=== PATIENT | male | born 1985 | race African-American/Black ===

== ENCOUNTER 2016-11-29 05:45 | Emergency (ER) | payer SELFPAY ==
[2016-11-29 05:53] VITALS: BP 148/97
[2016-11-29] MEDS ORDERED: Ketorolac INJ* 60 MG/2 ML VIAL IM ONE (07:28)
[2016-11-29] MEDS ORDERED: Clindamycin CAP* 150 MG PO ONE (07:33)
--- NOTE | 2016-11-29 17:07 | ED ---
Rambo Mcdonald Angela, scribed for Jasmeet Day MD on 11/29/16 at 0716 . Throat Pain/Nasal Congestion - HPI Summary HPI Summary: This pt is a 31 y/o male presenting to [facility] c/o left sided jaw pain and dental pain upon waking up this morning. Pt reports that his pain is severe, rated 8/ 10 in severity. Pt denies history of trauma to the area. He currently does not have a dentist. Pt denies trouble swallowing or throat tightening. Allergies: penicillin. He denies any PMHx. - History of Current Complaint Chief Complaint: EDGeneral Time Seen by Provider: 11/29/16 07:11 Hx Obtained From: Patient Onset/Duration: Lasting Hours, Still Present Severity: Severe - 8/10 pain Associated Signs And Symptoms: Negative: Dysphagia, FB Sensation, Drooling, Wheezing, Sinus Discomfort Cough: None - Allergies/Home Medications Allergies/Adverse Reactions: Allergies Allergy/AdvReac Type Severity Reaction Status Date / Time Penicillins [PCN] Allergy Unknown Verified 01/09/16 09:34 Reaction Details PMH/Surg Hx/FS Hx/Imm Hx Endocrine/Hematology History: Denies: Hx Diabetes Cardiovascular History: Denies: Hx Hypertension Respiratory History: Reports: Other Respiratory Problems/Disorders - h/o bronchitis Denies: Hx Asthma, Hx Pneumonia, Hx Seasonal Allergies GI History: Denies: Hx Gastroesophageal Reflux Disease Infectious Disease History: No Infectious Disease History: Denies: Traveled Outside the [place] in Last 30 Days - Family History Known Family History: Positive: Other - asthma - Social History Alcohol Use: None Substance Use Type: Reports: Marijuana Smoking Status (MU): Current Every Day Smoker Review of Systems Negative: Fever, Chills Positive: Dental Pain - left sided, Other - left jaw pain Negative: Chest Pain Negative: Shortness Of Breath Skin: Negative Negative: Headache, Weakness, Numbness All Other Systems Reviewed And Are Negative: Yes Physical Exam - Summary Physical Exam Summary: VITAL SIGNS: Reviewed. GENERAL: Patient is a well-developed and nourished male who is lying comfortable in the stretcher. Patient is not in any acute respiratory distress. HEAD AND FACE: No signs of trauma. No ecchymosis, hematomas or skull depressions. No sinus tenderness. EYES: PERRLA, EOMI x 2, No injected conjunctiva, no nystagmus. EARS: Hearing grossly intact. Ear canals and tympanic membranes are within normal limits. MOUTH: Oropharynx within normal limits. Pt has dental cavities in upper jaw. There are no signs of gingivitis or abscess. No trismus. No swelling of the lip or throat. NECK: Supple, trachea is midline, no adenopathy, no JVD, no carotid bruit, no c- spine tenderness, neck with full ROM. CHEST: Symmetric, no tenderness at palpation LUNGS: Clear to auscultation bilaterally. No wheezing or crackles. CVS: Regular rate and rhythm, S1 and S2 present, no murmurs or gallops appreciated. ABDOMEN: Soft, non-tender. No signs of distention. No rebound no guarding, and no masses palpated. Bowel sounds are normal. EXTREMITIES: FROM in all major joints, no edema, no cyanosis or clubbing. NEURO: Alert and oriented x 3. No acute neurological deficits. Speech is normal and follows commands. SKIN: Dry and warm Triage Information Reviewed: Yes Vital Signs On Initial Exam: Initial Vitals Temp Pulse Resp BP Pulse Ox 99.2 F 86 18 148/97 98 11/29/16 05:48 11/29/16 05:48 11/29/16 05:48 11/29/16 05:48 11/29/16 05:48 Vital Signs Reviewed: Yes - Rajwinder Coma Scale Coma Scale Total: 15 Diagnostics - Vital Signs Vital Signs Temp Pulse Resp BP Pulse Ox 11/29/16 05:48 99.2 F 86 18 148/97 98 - Laboratory Lab Statement: Any lab studies that have been ordered have been reviewed, and results considered in the medical decision making process. EENT Course/Dx - Course Assessment/Plan: This pt is a 31 y/o male presenting to [facility] c/o left sided jaw pain and dental pain upon waking up this morning. Pt reports that his pain is severe, rated 8/10 in severity. Pt denies history of trauma to the area. He currently does not have a dentist. Pt denies trouble swallowing or throat tightening. Allergies: penicillin. He denies any PMHx. In the physical exam, pt has dental cavities in the tooth# 15 and 16, as well as multiple teeth missing in # 17, 18, 19. The pt did not have trismus, swelling in tongue or gums , and no sign of abscess. Palpation at TMJ is not tender. Therefore, I believe his symptoms are secondary to dental cavities. Since the pt is allergic to penicillin, he will be given clindamycin and Toradol. Pt will be discharged and is asked to follow up with his dentist. Pt was given a prescription for clindamycin, norco and ibuprofen. He understands and agrees. Pt is hemodynamically stable, alert and oriented x3. - Differential Diagnoses Differential Diagnoses: Dental Abscess, Dental Caries - Diagnoses Provider Diagnoses: dental pain Discharge - Discharge Plan Condition: Stable Disposition: HOME Prescriptions: Clindamycin Cap(NF) [Clindamycin Cap 300 mg Cap(NF)] 300 mg PO Q6H #40 cap HYDROcodone/ACETAMIN 5-325 MG* [[place] 5-325 TAB*] 1 tab PO Q6H PRN #10 tab MDD 4 PRN Reason: Pain Ibuprofen TAB* [Motrin TAB* 800 MG] 800 mg PO Q6H PRN #20 tab PRN Reason: Pain Patient Education Materials: Toothache (ED) Referrals: Devyn Romero ASSISTANT ELEMENTARY TEACHER [Primary Care Provider] - Additional Instructions: Please follow up with your primary care provider. The documentation as recorded by the Rambo reyna Angela accurately reflects the service I personally performed and the decisions made by me, Jasmeet Day MD.
== END 2016-11-29 08:20 | disposition home or self-care (01) ==
LOC: ED 05:45
DX: K08.89 Other specified disorders of teeth and supporting structures (principal); F17.210 Nicotine dependence, cigarettes, uncomplicated
CPT/HCPCS: 96372; 99282; A9270-GY; J1885

== ENCOUNTER 2016-11-30 20:14 | Emergency (ER) | payer SELFPAY ==
[2016-11-30 20:21] VITALS: BP 161/92
[2016-11-30] MEDS ORDERED: Lidocaine 1%* 5 ML VIAL INJ ONE (21:27)
--- NOTE | 2016-11-30 21:48 | ED ---
Throat Pain/Nasal Congestion - HPI Summary HPI Summary: 31M presents with dental abscess for two days. He was seen yesterday and states that he just had pain in the area. He states over night he developed swelling there that goes in to left cheek. He denies any swelling around eyes or pain with eye movement. He denies any fevers, trismus. He admits to headache. He denies any chest pain or SOB. He has dental caries in the area. Pain is being managed well with pain medication given yesterday. - History of Current Complaint Chief Complaint: EDGeneral Time Seen by Provider: 11/30/16 20:29 - Allergies/Home Medications Allergies/Adverse Reactions: Allergies Allergy/AdvReac Type Severity Reaction Status Date / Time Penicillins [PCN] Allergy Unknown Verified 01/09/16 09:34 Reaction Details PMH/Surg Hx/FS Hx/Imm Hx Endocrine/Hematology History: Denies: Hx Diabetes Cardiovascular History: Denies: Hx Hypertension Respiratory History: Reports: Other Respiratory Problems/Disorders - h/o bronchitis Denies: Hx Asthma, Hx Pneumonia, Hx Seasonal Allergies GI History: Denies: Hx Gastroesophageal Reflux Disease Infectious Disease History: No Infectious Disease History: Denies: Traveled Outside the [place] in Last 30 Days - Family History Known Family History: Positive: Other - asthma - Social History Alcohol Use: None Substance Use Type: Reports: None Smoking Status (MU): Current Every Day Smoker Review of Systems Negative: Fever Positive: Dental Pain, Other - dental abscess Negative: Chest Pain Negative: Shortness Of Breath All Other Systems Reviewed And Are Negative: Yes Physical Exam Triage Information Reviewed: Yes Vital Signs On Initial Exam: Initial Vitals Temp Pulse Resp BP Pulse Ox 98.9 F 78 16 161/92 98 11/30/16 20:16 11/30/16 20:16 11/30/16 20:16 11/30/16 20:16 11/30/16 20:16 Vital Signs Reviewed: Yes Appearance: Positive: Well-Appearing Skin: Positive: Warm, Dry Head/Face: Positive: Normal Head/Face Inspection Eyes: Positive: Normal, EOMI, OSWALDO, Conjunctiva Clear ENT: Positive: Normal ENT inspection, Pharynx normal, TMs normal, Other - no edema under eyes Dental: Positive: Gross Decay/Caries @ - 12, Abscess @ - 12. Negative: Dental Fracture @ Neck: Positive: Supple, Nontender, No Lymphadenopathy Respiratory/Lung Sounds: Positive: Clear to Auscultation, Breath Sounds Present Cardiovascular: Positive: Normal, RRR Procedures - Incision and Drainage Site: tooth 12 Anesthesia: Topical, Local Instrument(s): Scalpel Diagnostics - Vital Signs Vital Signs Temp Pulse Resp BP Pulse Ox 11/30/16 20:16 98.9 F 78 16 161/92 98 - Laboratory Lab Statement: Any lab studies that have been ordered have been reviewed, and results considered in the medical decision making process. EENT Course/Dx - Course Course Of Treatment: 31M presents with dental abscess for two days. He was seen yesterday and states that he just had pain in the area. He states over night he developed swelling there that goes in to left cheek. He denies any swelling around eyes or pain with eye movement. He denies any fevers, trismus. He admits to headache. He denies any chest pain or SOB. He has dental caries in the area. Pain is being managed well with pain medication given yesterday. on exam has abscess tooth 12. no edema around eye. lungs CTA. attempted to I&D area and did not get any pus from abscess. will have continue clindamycin which has only been on for a day and gargle salt water in hopes that will drain. gave referral for oral surgery as needs dentist. patient understands and agrees with plan. - Differential Diagnoses Differential Diagnoses: Dental Abscess, Dental Caries, Fractured Tooth, Periorbital/Orbital Cellulitis - Diagnoses Provider Diagnoses: Dental abscess Discharge - Discharge Plan Condition: Good Disposition: HOME Patient Education Materials: Dental Abscess (ED) Referrals: Devyn Romero NP [Primary Care Provider] - Brandon Lombardi MD [Doctor of Dental Medicine] - Additional Instructions: Continue antibiotic as prescribed Follow up with dentist as soon as possible Do warm salt water rinses Place heat on area Return to ED if develop any pain with eye movement, fever, or any new or worsening symptoms Images - Images Dental: 1 - abscess
== END 2016-11-30 21:54 | disposition home or self-care (01) ==
LOC: ED 20:14
DX: K04.7 Periapical abscess without sinus (principal); F17.210 Nicotine dependence, cigarettes, uncomplicated
CPT/HCPCS: 96374; 99281

== ENCOUNTER 2017-02-16 03:52 | Emergency (ER) | payer BC ==
[2017-02-16] MEDS ORDERED: Metoclopramide IV* 5 MG/ML 2 ML VIAL IV ONE (04:05)
[2017-02-16] MEDS ORDERED: Morphine INJ* 4 MG/ML 1 ML CARPUJECT IV ONE (04:05)
[2017-02-16] MEDS ORDERED: Pantoprazole IV* 40 MG IV ONE (04:05)
[2017-02-16] MEDS ORDERED: NS 0.9% 1000 ML* 1,000 ML IV ONE (04:08)
[2017-02-16 04:57] LABS: ABS Basophils 0 10^3/ul (0-0.2); ABS Eosinophils 0.1 10^3/ul (0-0.6); ABS Lymphocytes 0.5 10^3/ul (1.0-4.8); ABS Monocytes 0.5 10^3/ul (0-0.8); ABS Neutrophils 6.9 10^3/ul (1.5-7.7); ABS Nucleated RBC 0 10^3/ul; Eosinophil % 0.7 % (0-6); Hematocrit 43 % (42-52); Hemoglobin 14.7 g/dl (14.0-18.0); Lymphocyte % 6.3 % (25-47); Mean Corpuscular HGB Conc 34 g/dl (31-36); Mean Corpuscular Hemoglobin 27 pg (27-31); Mean Corpuscular Volume 80 fL (80-94); Mean Platelet Volume 9 um3 (7.4-10.4); Nucleated Red Blood Cells % 0; Platelet Count 150 10^3/ul (150-450); Red Blood Count 5.38 10^6/ul (4.0-5.4); Red Cell Distribution Width 13 % (10.5-15)
[2017-02-16 05:12] LABS: EGFR Non-African American 101.7 (>60)
[2017-02-16] MEDS ORDERED: Iohexol 300* (CONTRAST) 10 ML SDV IV ONE (05:23)
--- NOTE | 2017-02-16 08:24 | RAD ---
INDICATION: Abdominal pain. COMPARISON: Comparison is made with a prior CT of the abdomen and pelvis from November 24, 2010. TECHNIQUE: A CT scan of the abdomen and pelvis was performed with intravenous and oral contrast following intravenous injection of 88 ml of Omnipaque 300 nonionic contrast. Contiguous axial sections were obtained from the lung bases through the symphysis pubis. Images were reconstructed in the coronal and sagittal planes. FINDINGS: The lung bases are clear. No pleural effusion is present. The liver and spleen are within normal limits in size without significant focal abnormality. No calcified gallstones are seen. The pancreas appears to be within normal limits in size. The kidneys and adrenal glands are normal in size. No hydronephrosis is seen. There is an 8 x 7 mm calculus in the midportion of the left kidney which is nonobstructing. The aorta is normal in caliber and demonstrates homogeneous contrast opacification. No significant enlarged retroperitoneal lymph nodes are seen. The stomach, small and large bowel appear nondistended. The appendix is not well visualized. There is suggestion of minimal thickening of the wall of the descending colon which likely represents normal variation less likely colitis. There is mild sigmoid diverticulosis without evidence for diverticulitis. No free intraperitoneal air or fluid is seen. No significant focal osseous abnormality is seen. IMPRESSION: 1. SUGGESTION OF MINIMAL THICKENING OF THE WALL OF THE ASCENDING COLON LIKELY REPRESENTING NORMAL VARIATION LESS LIKELY COLITIS. 2. NONOBSTRUCTING LEFT RENAL CALCULUS.
[2017-02-16 08:59] LABS: Urine Appearance Clear; Urine Blood Negative (Negative); Urine Color Yellow; Urine Ketones Trace (Negative); Urine Protein Negative (Negative); Urine Specific Gravity 1.051 (1.010-1.030); Urine Urobilinogen Negative (Negative)
--- NOTE | 2017-02-16 09:36 | ED ---
Mateus Mcdonald Natalie, scribed for Pepe Fitzpatrick MD on 02/16/17 at 0844 . Progress - Progress Note Progress Note: pt seen to have kidney stone nonobstructing, pain improved currently. No evidence of infection or kidney compromise, instructed to fu with urologist within 1 week. Pt agrees to and understnads dc instructions. - EKG/XRAY/CT CT: CT A/P: Nonobstructing L renal calculus. ED physician has reviewed this rep Course/Dx - Diagnoses Provider Diagnoses: Abdominal pain The documentation as recorded by the Mateus reyna Natalie accurately reflects the service I personally performed and the decisions made by Amari sheridan Dong, MD.
[2017-02-16 09:57] VITALS: BP 110/72
== END 2017-02-16 09:54 | disposition home or self-care (01) ==
LOC: ED 03:52
DX: R10.9 Unspecified abdominal pain (principal); N20.0 Calculus of kidney
CPT/HCPCS: 36415; 74177; 80053; 81003; 82150; 83690; 83735; 85025; 85730; 86140; 96374; 96375; 99283; J2270; J2765; Q9967

== ENCOUNTER 2017-03-11 11:41 | Day surgery (SDC) | payer BC ==
--- NOTE | 2017-02-28 20:32 | HP ---
ADMITTING HISTORY AND PHYSICAL: DATE OF ADMISSION: 03/11/17 ADMITTING DIAGNOSIS: Left renal calculus. PLANNED PROCEDURE: Shockwave lithotripsy of the left renal calculus. HISTORY OF PRESENT ILLNESS: Caleb Bauer is a 31-year-old gentleman who had been evaluated in the emergency room for left-sided pain. He had been noted to have a calculus in the left kidney and was subsequently seen in my office. He was noted to have a 1 cm calculus in the mid pole of the left kidney and would like to have treatment of the same. PAST MEDICAL HISTORY: Unremarkable. PAST SURGICAL HISTORY: Negative. MEDICATIONS ON ADMISSION: None. ALLERGIES: PENICILLIN (hives). FAMILY HISTORY: Grandmother and cousin both have a history of kidney stones. SOCIAL HISTORY: Smoking history: He is a former smoker with a 3 to 4 pack year smoking history. REVIEW OF SYSTEMS: He denies any chest pain or shortness of breath. There is no history of diabetes mellitus or any other major systemic illness. PHYSICAL EXAMINATION GENERAL: Reveals a pleasant healthy-appearing young gentleman. VITAL SIGNS: Blood pressure is 112/80, pulse 90 per minute and regular, oxygen saturation 98% on room air. LUNGS: Clear bilaterally. CARDIOVASCULAR: Regular rate and rhythm. S1, S2. ABDOMEN: Soft with mild left flank tenderness. IMPRESSION: A 31-year-old gentleman with about 1 cm calculus in the left kidney. I have discussed the procedure of lithotripsy along with possible risks of bleeding, infection, incomplete fragmentation, possible injury to the kidney and he appears to understand and wishes to proceed as planned. PLAN: Shockwave lithotripsy, left renal calculus. [id number]/[facility] #: [id number] MTDD
[~2017-03-11 11:41] MED LIST: Buffered Lidocaine 0.9% SYRIN* 5 ML/SYR SYRINGE INTRADERM ONE; Dexamethasone IV* 4 MG/ML 1 ML (4 MG) IV SLOW PU ONE; Famotidine IV* 10 MG/ML 2 ML (20 mg) IV ONE
[2017-03-11] MEDS ORDERED: Buffered Lidocaine 0.9% SYRIN* 5 ML/SYR SYRINGE ONE (11:52)
[2017-03-11] MEDS ORDERED: cefTRIAXone(*) 2 GM ADDV.VIAL IVPB ONE (11:52)
[2017-03-11] MEDS ORDERED: Dexamethasone IV* 4 MG/ML 1 ML (4 MG) ONE (11:52)
[2017-03-11] MEDS ORDERED: Famotidine IV* 10 MG/ML 2 ML (20 mg) ONE (11:52)
[2017-03-11] MEDS ORDERED: Levofloxacin 500 MG IVPREMIX(* 500 MG/100 ML BAG IVPB ONE (12:23)
[2017-03-11] MEDS ORDERED: Midazolam* 1 MG/ML 2 ML VIAL (2 MG) ONE (12:32)
[2017-03-11] MEDS ORDERED: fentaNYL* 50 MCG/ML 2 ML VIAL (100 MCG VIAL) ONE (12:32)
[2017-03-11] MEDS ORDERED: Propofol* 10 MG/ML 20 ML BTL IV PUSH ONE (12:32)
[2017-03-11] MEDS ORDERED: Ondansetron INJ* 2 MG/ML VIAL ONE (12:32)
--- NOTE | 2017-03-11 13:05 | RAD ---
Indication: Lithotripsy. Single view of the abdomen demonstrates bowel gas pattern to be unremarkable. Calcifications are present overlying the midportion of the left kidney. This is unchanged from February 26, 2017. IMPRESSION: Calcification in the midportion of the left kidney. This is unchanged from February 26, 2017.
[2017-03-11] MEDS ORDERED: Naloxone* 0.4 MG/ML 1 ML VIAL IV PRN (14:49)
[2017-03-11] MEDS ORDERED: fentaNYL* 50 MCG/ML 2 ML VIAL (100 MCG VIAL) IV PRN (14:49)
[2017-03-11] MEDS ORDERED: DiMENhydriNATE IV* 50 MG/ML VIAL IV PUSH PRN (14:49)
[2017-03-11 15:59] VITALS: BP 113/71
--- NOTE | 2017-03-11 16:43 | RAD ---
INDICATION: Status post shock wave lithotripsy. COMPARISON: Comparison is made with a prior CT of the abdomen and pelvis from February 16, 2017 and a prior KUB study from March 11, 2017 from 4 hours earlier. TECHNIQUE: Frontal supine films of the abdomen were obtained. FINDINGS: The small bowel and colon appear nondistended. There are calculi which project over the midportion of the left kidney measuring up to 6 mm in size. IMPRESSION: LEFT RENAL CALCULI.
--- NOTE | 2017-03-12 06:48 | OP ---
DATE OF OPERATION: 03/11/17 - [facility] DATE OF : 83 SURGEON: Jerel Hoff MD ANESTHESIOLOGIST: Dr. Whitman. ANESTHESIA: General. PRE-OP DIAGNOSIS: Left renal calculus. POST-OP DIAGNOSIS: Left renal calculus. OPERATIVE PROCEDURE: Shockwave lithotripsy of left renal calculus. INDICATIONS: Caleb Bauer is a 31-year-old gentleman who was evaluated and noted to have a 7 to 8 mm calculus in the left kidney. He desires treatment of the same and after thorough discussion of the procedure and possible risks including bleeding, infection, incomplete fragmentation and obstruction with fragments, he opted for and is now being brought in for shockwave lithotripsy. COMPLICATIONS: None. POSTOPERATIVE CONDITION: Stable. DESCRIPTION OF PROCEDURE: After induction of general anesthesia, the patient was placed on the lithotripsy table in supine position. There calculus in the mid to lower pole area of the left kidney was localized using fluoroscopy. Shock-wave lithotripsy was commenced at a rate of 90 shocks per minute. After the initial 300 shocks, there was a pause in lithotripsy in an effort to minimize any potential trauma to the kidney. Lithotripsy was then resumed and a total of 2400 shocks were administered. The patient tolerated the procedure satisfactorily and was transferred back to the recovery area in stable condition. [id number]/[facility] #: [id number] MTDD
== END 2017-03-11 16:06 | disposition home or self-care (01) ==
LOC: OR 11:41
PROVIDERS: ATTEND Urology
DX: N20.0 Calculus of kidney (principal); Z87.891 Personal history of nicotine dependence
CPT/HCPCS: 74018; J0696; J1100; J1956; J2250; J2405; J2704; J3010

== ENCOUNTER 2017-06-11 11:26 | Emergency (ER) | payer BC ==
[2017-06-11 11:35] VITALS: BP 120/70
--- NOTE | 2017-06-11 12:42 | ED ---
Amol Mcdonald Stephanie, scribed for Ja Daigle MD on 06/11/17 at 1146 . Throat Pain/Nasal Congestion - HPI Summary HPI Summary: The pt is a 31 y/o M presenting to the ED with c/o sore throat that began on . Symptoms include cough and nasal congestion. - History of Current Complaint Chief Complaint: EDThroatPain Time Seen by Provider: 06/11/17 11:40 Hx Obtained From: Patient Onset/Duration: Gradual Onset, Lasting Days - 2, Still Present Severity: Mild Cough: Nonproductive Related History: Smoking - Allergies/Home Medications Allergies/Adverse Reactions: Allergies Allergy/AdvReac Type Severity Reaction Status Date / Time Penicillins Allergy Hives Verified 06/11/17 11:33 PMH/Surg Hx/FS Hx/Imm Hx Endocrine/Hematology History: Denies: Hx Diabetes Cardiovascular History: Denies: Hx Hypertension, Other Cardiovascular Problems/Disorders Respiratory History: Denies: Hx Asthma, Hx Pneumonia, Hx Seasonal Allergies, Other Respiratory Problems/Disorders GI History: Denies: Hx Gastroesophageal Reflux Disease, Other GI Disorders History: Reports: Hx Kidney Stones - Left renal calculus, ESWL 03/11/17, Other Problems/Disorders - chlamydia, 3 years ago, treated Denies: Hx Kidney Infection Musculoskeletal History: Denies: Other Musculoskeletal History Sensory History: Reports: Hx Contacts or Glasses - Glasses Denies: Hx Hearing Aid Opthamlomology History: Reports: Hx Contacts or Glasses - Glasses Neurological History: Reports: Other Neuro Impairments/Disorders - Nerve damage right pinky and index finger from a laceration - Surgical History Surgery Procedure, Year, and Place: N/A Infectious Disease History: No Infectious Disease History: Denies: Traveled Outside the [place] in Last 30 Days - Family History Known Family History: Positive: Other - asthma Negative: Renal Disease - Social History Occupation: Employed Part-time Lives: With Family Alcohol Use: Occasionally Hx Substance Use: Yes Substance Use Type: Reports: Marijuana Substance Use Comment - Amount & Last Used: Rarely Hx Tobacco Use: Yes Smoking Status (MU): Current Some Day Smoker Type: Cigarettes Amount Used/How Often: occasionally Have You Smoked in the Last Year: Yes Review of Systems Negative: Fever Positive: Sore Throat, Other - sinus congestion Positive: Cough All Other Systems Reviewed And Are Negative: Yes Physical Exam - Summary Physical Exam Summary: Appearance: Well appearing, no pain distress Skin: warm, dry, reflects adequate perfusion Head/face: normal Eyes: EOMI, OSWALDO ENT: R ear clogged with wax, L ear nml, clear mucus in throat Neck: supple, non-tender Respiratory: CTA, breath sounds present Cardiovascular: RRR, pulses symmetrical Abdomen: non-tender, soft Bowel Sounds: present Musculoskeletal: normal, strength/ROM intact Neuro: normal, sensory motor intact, A&Ox3 Triage Information Reviewed: Yes Vital Signs On Initial Exam: Initial Vitals Temp Pulse Resp BP Pulse Ox 98.1 F 89 14 120/70 98 06/11/17 11:33 06/11/17 11:33 06/11/17 11:33 06/11/17 11:33 06/11/17 11:33 Vital Signs Reviewed: Yes Diagnostics - Vital Signs Vital Signs Temp Pulse Resp BP Pulse Ox 06/11/17 11:33 98.1 F 89 14 120/70 98 - Laboratory Lab Statement: Any lab studies that have been ordered have been reviewed, and results considered in the medical decision making process. EENT Course/Dx - Course Course Of Treatment: Afebrile smoker. No significant respiratory component. No findings consistent with strep. Cold symptoms. Treat symptomatically for viral etiology. - Diagnoses Provider Diagnoses: URI (upper respiratory infection) Discharge - Sign-Out/Discharge Documenting (check all that apply): Discharge/Admit/Transfer - discharge - Discharge Plan Condition: Stable Disposition: HOME Prescriptions: Dexamethasone TAB* [Decadron TAB*] 8 mg PO DAILY #6 tab Guaifenesin/Pseudo 600/60(NF) [Mucinex D 600/60 (NF)] 1 tab PO Q12H PRN #14 tab PRN Reason: Congestion Patient Education Materials: Upper Respiratory Infection (ED) Forms: *Work Release Referrals: [facility] PH[facility]ICIAN REFERRAL [Outside] No Primary Care Phys,NOPCP [Primary Care Provider] - Additional Instructions: Tylenol, ibuprofen as needed. Stay well-hydrated. Humidifier while sleeping. Return with difficulty breathing, worse or other concerns. - Billing Disposition and Condition Condition: STABLE Disposition: HOME The documentation as recorded by the Amol reyna Stephanie accurately reflects the service I personally performed and the decisions made by , Ja Daigle MD.
== END 2017-06-11 11:48 | disposition home or self-care (01) ==
LOC: ED 11:26
DX: J06.9 Acute upper respiratory infection, unspecified (principal); R10.9 Unspecified abdominal pain; J02.9 Acute pharyngitis, unspecified; Z72.0 Tobacco use
CPT/HCPCS: 99282

== ENCOUNTER 2017-06-17 14:56 | Day surgery (SDC) | payer BC ==
--- NOTE | 2017-06-14 20:35 | HP ---
ADMITTING HISTORY AND PHYSICAL: DATE OF ADMISSION: 06/17/17 ADMITTING DIAGNOSES: 1. Calculus, left proximal ureter. 2. Calculus, left kidney. 3. Left hydronephrosis. PLANNED PROCEDURE: Shockwave lithotripsy of calculus, left ureter and left kidney and possible left stent insertion. SURGEON: Jerel Hoff MD HISTORY OF PRESENT ILLNESS: Caleb Bauer is a 31-year-old gentleman who had undergone shockwave lithotripsy over 3 months ago for an approximately 1 cm left renal calculus. He had been doing well up until last week when he had some left flank pain and he was evaluated in my office now on 06/14/17 and noted to have a 7 mm calculus in the left proximal ureter with mild left hydronephrosis and an additional 5.7 mm calculus in the lower pole of the left kidney. He was given the option of trying to manage this conservatively, but because of the size and the proximal location of the calculus, would like to have it treated and is now being brought in for shockwave lithotripsy and possible left stent insertion. PAST MEDICAL HISTORY: Significant for recent upper respiratory illness for which he was treated with steroids and has recovered fully. PAST SURGICAL HISTORY: Significant for shockwave lithotripsy in February 2017. MEDICATIONS: On admission, none. ALLERGIES: PENICILLIN (hives). SOCIAL HISTORY: Smoking history: He is a former smoker with a 3 to 4 pack year smoking history. REVIEW OF SYSTEMS: He is otherwise in excellent health. There is no history of diabetes mellitus or any other major systemic illness. PHYSICAL EXAMINATION GENERAL: Reveals a pleasant healthy appearing gentleman. VITAL SIGNS: Blood pressure is 120/78, pulse 80 per minute and regular, temperature 97.4, oxygen saturation 98% on room air. LUNGS: Clear bilaterally. CARDIOVASCULAR: Regular rate and rhythm. S1 and S2. ABDOMEN: Soft with mild left flank tenderness. IMPRESSION: A 31-year-old gentleman with a calculus in the left proximal ureter and in the left kidney with mild left hydronephrosis. PLAN: Planned procedure is shockwave lithotripsy of calculus, left ureter and left kidney and possible left stent insertion. [id number]/[facility] #: [id number] MTDD
[~2017-06-17 14:56] MED LIST changes: -Dexamethasone IV* 4 MG/ML 1 ML (4 MG) IV SLOW PU ONE; -Famotidine IV* 10 MG/ML 2 ML (20 mg) IV ONE
[2017-06-17] MEDS ORDERED: Levofloxacin 500 MG IVPREMIX(* 500 MG/100 ML BAG IVPB ONE (15:20)
--- NOTE | 2017-06-17 16:27 | RAD ---
INDICATION: Shockwave lithotripsy COMPARISON: June 14, 2017 TECHNIQUE: A single view of the abdomen is submitted. FINDINGS: Bones: There are no acute bony findings. Soft tissues: The soft tissues appear normal. The psoas margins are sharp. Bowel gas pattern: Normal Calcifications: There is left-sided urolithiasis. A fragmented 8mm calcific density projects over the lower pole of the left kidney and there is a 7 mm calcific density projecting over the renal pelvis or proximal left ureter. The appearance is unchanged. Other: None IMPRESSION: LEFT-SIDED UROLITHIASIS, UNCHANGED
[2017-06-17] MEDS ORDERED: fentaNYL* 50 MCG/ML 2 ML VIAL (100 MCG VIAL) ONE (17:14)
[2017-06-17] MEDS ORDERED: Midazolam* 1 MG/ML 2 ML VIAL (2 MG) ONE (17:14)
[2017-06-17] MEDS ORDERED: PROCHLORPERAZINE INJ 5 MG/ML 2 ML VIAL IV PRN (17:16)
[2017-06-17] MEDS ORDERED: Naloxone* 0.4 MG/ML 1 ML VIAL IV PRN (17:16)
[2017-06-17] MEDS ORDERED: Acetaminophen TAB* 325 MG PO PRN (17:16)
[2017-06-17] MEDS ORDERED: fentaNYL* 50 MCG/ML 2 ML VIAL (100 MCG VIAL) IV PRN (17:16)
[2017-06-17] MEDS ORDERED: DiMENhydriNATE IV* 50 MG/ML VIAL IV PUSH PRN (17:16)
[2017-06-17] MEDS ORDERED: Nalbuphine* 20 MG/ML 1 ML VIAL IV PRN (17:16)
[2017-06-17] MEDS ORDERED: Iohexol 180 (CONTRAST) 10 ML SDV IV ONE (17:51)
[2017-06-17] MEDS ORDERED: Dexamethasone IV* 4 MG/ML 1 ML (4 MG) ONE (18:12)
[2017-06-17] MEDS ORDERED: Propofol* 10 MG/ML 20 ML BTL IV PUSH ONE (18:12)
[2017-06-17] MEDS ORDERED: Furosemide IV* 10 MG/ML 2 ML VIAL (20 MG) ONE (18:12)
[2017-06-17] MEDS ORDERED: PROCHLORPERAZINE INJ 5 MG/ML 2 ML VIAL ONE (18:12)
[2017-06-17 19:48] VITALS: BP 139/98
--- NOTE | 2017-06-17 20:56 | RAD ---
INDICATION: Left renal calculus COMPARISON: Most recent KUB is dated June 17, 2017 acquired at 1542 hours TECHNIQUE: A single AP view of the abdomen was obtained at 2018 hours FINDINGS: There is been interval placement of a left-sided ureteral stent. Multifocal calcifications at the lower pole collecting system of the left kidney as well as calcification along the proximal portion of the recently placed stent correspond to calcifications seen on the prior radiograph. IMPRESSION: INTERVAL PLACEMENT OF A LEFT URETERAL STENT IN THE PRESENCE OF MULTIPLE LEFT-SIDED RENAL CALCULI.
--- NOTE | 2017-06-18 11:35 | OP ---
DATE OF OPERATION: 06/17/17 - [facility] DATE OF : 83 SURGEON: Jerel Hoff MD ANESTHESIOLOGIST: Dr. Gatica. ANESTHESIA: General. PRE-OP DIAGNOSIS: 1. Calculus, left proximal ureter. 2. Calculi, left kidney. 3. Left hydronephrosis. POST-OP DIAGNOSIS: 1. Calculus, left proximal ureter. 2. Calculi, left kidney. 3. Left hydronephrosis. OPERATIVE PROCEDURE: 1. Shock wave lithotripsy of calculus, left ureter. 2. Cystoscopy, left retrograde and left stent insertion. COMPLICATIONS: None. STENTS USED: 6-Bulgarian stent left ureter. INDICATIONS: Caleb Bauer is a 31-year-old gentleman who had previously undergone shock wave lithotripsy for a large calculus in the right kidney. He was recently evaluated and noted to have what appears to be a 7 to 8 mm calculus or fragment in the left proximal ureter with additional left renal calculi. FINDINGS: 1. Large, fairly hard calculus, left proximal ureter with additional left renal calculi. 2. Left hydronephrosis with fairly narrow left ureter. POSTOPERATIVE CONDITION: Stable. DESCRIPTION OF PROCEDURE: After induction of general anesthesia, the patient was placed on the lithotripsy table in supine position. The calculus on the left proximal ureter was localized using fluoroscopy and shock wave lithotripsy was commenced at a rate of 90 shocks per minute. The calculus was fairly large and fairly dense and it was treated with 2800 shocks with partial fragmentation observed, but not complete obliteration of the calculus. The patient was placed in dorsal lithotomy position. Cystoscopy was performed. 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 The remainder of the urethra was unremarkable. The bladder was examined. Left retrograde pyelogram revealed left hydronephrosis. A 4-Bulgarian open ended catheter was introduced and even this was fairly snug suggesting a very narrow left ureter. A 6-Bulgarian stent was introduced and positioned under fluoroscopy with good proximal and distal positioning obtained. The bladder was emptied. My plan is to bring him back in 2 weeks for shock wave lithotripsy of the remaining stones that are in the left kidney and possibly for simultaneous left stent removal at that time. The patient tolerated the procedure satisfactorily and was transferred back to the recovery area in stable condition. [id number]/[facility] #: [id number] [facility]
== END 2017-06-17 20:17 | disposition home or self-care (01) ==
LOC: OR 14:56
PROVIDERS: ATTEND Urology
DX: N13.2 Hydronephrosis with renal and ureteral calculous obstruction (principal); Z87.891 Personal history of nicotine dependence
CPT/HCPCS: 74018; C1876; J0780; J1100; J1940; J1956; J2250; J2704; J3010

== ENCOUNTER 2017-07-01 09:59 | Day surgery (SDC) | payer BC ==
[~2017-07-01 09:59] MED LIST changes: +Sodium Citrate/Citric Acid* 15 ML UDC PO ONE
[2017-07-01] MEDS ORDERED: Sodium Citrate/Citric Acid* 15 ML UDC ONE (10:12)
[2017-07-01] MEDS ORDERED: Levofloxacin 500 MG IVPREMIX(* 500 MG/100 ML BAG IVPB ONE (10:12)
[2017-07-01] MEDS ORDERED: Buffered Lidocaine 0.9% SYRIN* 5 ML/SYR SYRINGE ONE (10:12)
--- NOTE | 2017-07-01 11:55 | RAD ---
INDICATION: Left renal calculus COMPARISON: Most recent KUB dated June 17, 2017 TECHNIQUE: A single AP view was obtained. FINDINGS: Again seen is an anatomically aligned left ureteral stent. There is a cluster of calcifications overlying the lower pole the left kidney measuring 9 mm in greatest dimension. Along the proximal portion of the left ureteral stent are multiple small foci of calcification. Compared to the previous KUB these calcifications appear more fragmented and spread out. IMPRESSION: AGAIN SEEN IS AN ANATOMICALLY ALIGNED LEFT URETERAL STENT WITH MULTIPLE CALCIFICATIONS DESCRIBED ABOVE.
[2017-07-01] MEDS ORDERED: Ondansetron INJ* 2 MG/ML VIAL IV PRN (13:17)
[2017-07-01] MEDS ORDERED: Naloxone* 0.4 MG/ML 1 ML VIAL IV PRN (13:17)
[2017-07-01] MEDS ORDERED: fentaNYL* 50 MCG/ML 2 ML VIAL (100 MCG VIAL) IV PRN (13:17)
[2017-07-01] MEDS ORDERED: fentaNYL* 50 MCG/ML 2 ML VIAL (100 MCG VIAL) ONE (13:28)
[2017-07-01] MEDS ORDERED: Propofol* 10 MG/ML 20 ML BTL IV PUSH ONE (13:28)
[2017-07-01] MEDS ORDERED: Lidocaine 2% PF * 5 ML VIAL ONE (13:28)
[2017-07-01] MEDS ORDERED: Furosemide IV* 10 MG/ML 2 ML VIAL (20 MG) ONE (13:42)
[2017-07-01 15:39] VITALS: BP 128/86
--- NOTE | 2017-07-01 17:39 | RAD ---
Indication: History of urolithiasis. Post shockwave lithotripsy. Comparison: 1021 hours exam of the same date. Technique: Supine view of the abdomen. Report: Unremarkable bowel gas pattern. Suggestion of mild interval fragmentation of conglomerate of stones at the lower pole the LEFT kidney. Additional small calcification at level of the LEFT renal pelvis extending to the ureteropelvic junction. The LEFT ureteral stent has been removed. Unremarkable soft tissue contours. IMPRESSION: Suggestion of mild interval fragmentation of conglomerate of stones at the lower pole the LEFT kidney. Additional small calcification at level of the LEFT renal pelvis extending to the ureteropelvic junction. The LEFT ureteral stent has been removed.
--- NOTE | 2017-07-02 10:41 | OP ---
DATE OF OPERATION: 07/01/17 - [facility] DATE OF : 83 SURGEON: Jerel Hoff MD ANESTHESIOLOGIST: Inder Byrnes DO ANESTHESIA: General. PRE-OP DIAGNOSES: 1. Left renal calculi. 2. Left ureteral calculus. POST-OP DIAGNOSES: 1. Left renal calculi. 2. Left ureteral calculus. OPERATIVE PROCEDURE: 1. Shock wave lithotripsy of left renal calculus. 2. Shock wave lithotripsy of left ureteral calculus. 3. Cystoscopy and left stent removal. INDICATIONS: Caleb Bauer is a 31-year-old gentleman who had undergone urgent stent insertion for an obstructing calculus in the left proximal ureter. He had previously undergone lithotripsy of a left ureteral calculus, but in addition was noted to have multiple renal calculi. He is now being brought in for lithotripsy of the left renal calculi and left stent removal. COMPLICATIONS: None. POSTOPERATIVE CONDITION: Stable. DESCRIPTION OF PROCEDURE: After induction of general anesthesia, the patient was placed on the lithotomy table in supine position. Attention was first directed to the calculi in the lower pole of the left kidney. Shock wave lithotripsy was commenced at a rate of 90 shocks per minute. After the initial 300 shocks, there was a pause in lithotripsy for several minutes in an effort to minimize any potential trauma to the kidney. Lithotripsy was then resumed and a total of 1600 shocks were administered to the calculi in the lower pole of the kidney. Next, the patient was repositioned and the calculus in the proximal left ureter where there was still leftover fragment from the previous lithotripsy was identified and this was targeted with 800 shocks at a rate of 90 shocks per minute. After this was completed, the patient was placed in dorsal lithotomy position. Cystoscopy was performed. A stricture was noted at the meatus and was carefully dilated. The bladder was examined. The stent was seen exiting from the left orifice and was removed intact without difficulty. The patient tolerated the procedure satisfactorily and was transferred back to the recovery area in stable condition. [id number]/[facility] #: [id number] [facility]
== END 2017-07-01 15:52 | disposition home or self-care (01) ==
LOC: OR 09:59
PROVIDERS: ATTEND Urology
DX: N20.2 Calculus of kidney with calculus of ureter (principal); Z87.891 Personal history of nicotine dependence
CPT/HCPCS: 74018; A9270-GY; J1940; J1956; J2704; J3010

== ENCOUNTER 2017-07-26 06:55 | Emergency (ER) | payer BC ==
--- NOTE | 2017-07-26 07:19 | ED ---
Throat Pain/Nasal Congestion - HPI Summary HPI Summary: Patient presents with sneezing, nasal congestion, itchy palate, sore throat and intermittent mild cough. He also has symptoms into his left ear at times of pressure and itching. Denies fevers, chills, headache, neck stiffness, chest pain, shortness of breath, wheezing, chest tightness, abdominal pain, nausea, vomiting, diarrhea, rash. He admits he does have seasonal allergies and has tried Zyrtec but he usually takes Benadryl and has not done this yet. He continues to smoke. He has not tried any other interventions for his allergies. He is concerned about strep throat. No known sick contacts. - History of Current Complaint Chief Complaint: EDUpperRespComplaint Time Seen by Provider: 07/26/17 07:08 Hx Obtained From: Patient - Allergies/Home Medications Allergies/Adverse Reactions: Allergies Allergy/AdvReac Type Severity Reaction Status Date / Time Penicillins Allergy Hives Verified 07/26/17 07:02 PMH/Surg Hx/FS Hx/Imm Hx Previously Healthy: Yes Endocrine/Hematology History: Denies: Hx Diabetes Cardiovascular History: Denies: Hx Hypertension, Other Cardiovascular Problems/Disorders Respiratory History: Reports: Hx Seasonal Allergies - benadryl PRN Denies: Hx Asthma, Hx Pneumonia, Other Respiratory Problems/Disorders GI History: Denies: Hx Gastroesophageal Reflux Disease, Other GI Disorders History: Reports: Hx Kidney Stones - Left renal calculus, ESWL 03/11/17 Denies: Hx Kidney Infection, Other Problems/Disorders Musculoskeletal History: Reports: Other Musculoskeletal History - Occasional back pain. Sensory History: Reports: Hx Contacts or Glasses - Glasses Denies: Hx Hearing Aid Opthamlomology History: Reports: Hx Contacts or Glasses - Glasses Neurological History: Reports: Other Neuro Impairments/Disorders - Nerve damage right pinky and index finger from a laceration - Surgical History Surgery Procedure, Year, and Place: Lithotrypsy 02/2017 Hx Anesthesia Reactions: No Infectious Disease History: No Infectious Disease History: Denies: Traveled Outside the [place] in Last 30 Days - Family History Known Family History: Positive: Other - asthma Negative: Renal Disease - Social History Occupation: Employed Full-time Lives: Dormitory/Roommates Alcohol Use: None Hx Substance Use: Yes Substance Use Type: Reports: Marijuana Substance Use Comment - Amount & Last Used: Rarely Hx Tobacco Use: Yes Smoking Status (MU): Current Some Day Smoker Type: Cigarettes Amount Used/How Often: occasionally Have You Smoked in the Last Year: Yes Review of Systems Constitutional: Negative Negative: Fever, Chills, Fatigue Eyes: Negative Positive: Sore Throat, Ear Ache, Nasal Discharge Cardiovascular: Negative Respiratory: Negative Gastrointestinal: Negative Positive: no symptoms reported Musculoskeletal: Negative Skin: Negative Neurological: Negative Psychological: Normal All Other Systems Reviewed And Are Negative: Yes Physical Exam Triage Information Reviewed: Yes Vital Signs On Initial Exam: Initial Vitals Temp Pulse Resp BP Pulse Ox 97.9 F 68 14 120/85 100 07/26/17 07:02 07/26/17 07:02 07/26/17 07:02 07/26/17 07:02 07/26/17 07:02 Vital Signs Reviewed: Yes Appearance: Positive: Well-Appearing, No Pain Distress, Well-Nourished Skin: Positive: Warm, Skin Color Reflects Adequate Perfusion, Dry - no rash Head/Face: Positive: Normal Head/Face Inspection Eyes: Positive: Normal, EOMI, Conjunctiva Clear. Negative: Conjunctiva Inflammed, Discharge ENT: Positive: Hearing grossly normal, Pharyngeal erythema - mild erythema tonsilar arches/cobblestoning, TMs normal. Negative: Nasal congestion, Nasal drainage, Tonsillar swelling, Tonsillar exudate, Trismus, Muffled voice Neck: Positive: Supple, No Lymphadenopathy, Tenderness @ - mild submandibular TTP Respiratory/Lung Sounds: Positive: Clear to Auscultation, Breath Sounds Present. Negative: Rales, Rhonchi, Stridor, Tracheal Deviation, Wheezes Cardiovascular: Positive: Normal, RRR, S1, S2. Negative: Murmur, Rub Abdomen Description: Positive: Nontender, No Organomegaly, Soft Bowel Sounds: Positive: Present Musculoskeletal: Positive: Normal, Strength/ROM Intact Neurological: Positive: Normal, Sensory/Motor Intact, Alert, Oriented to Person Place, Time, CN Intact II-III Psychiatric: Positive: Normal Diagnostics - Vital Signs Vital Signs Temp Pulse Resp BP Pulse Ox 07/26/17 07:02 97.9 F 68 14 120/85 100 - Laboratory Lab Statement: Any lab studies that have been ordered have been reviewed, and results considered in the medical decision making process. EENT Course/Dx - Course Course Of Treatment: neg rapid strep - Diagnoses Provider Diagnoses: Seasonal allergies Discharge - Sign-Out/Discharge Documenting (check all that apply): Discharge/Admit/Transfer - Discharge Plan Condition: Stable Disposition: HOME Patient Education Materials: Allergies (ED) Forms: *Work Release Referrals: [facility] [Outside] Additional Instructions: Nasal wash (netti pot or saline spray) & salt water throat gargles 2 x day Drink you body weight in ounces of water every day Sleep 8+ hours per night Avoid Dairy and sugar Hot herbal/decaf tea with lemon & honey Chicken broth (preferably organic, free range chicken) Humidifier in house, but especially near bed at night Keep home temperature at 68F or less to reduce dryness Use cough drops/throat lozenges Try a facial steam with or without eucalyptus essential oil or Philip's Vapor rub for congestion Avoid smoke, candles, perfumes, colognes, scented soaps/detergents , air fresheners and cleaning chemicals as these can cause airway irritation and trigger coughing You may continue zyrtec during the day and try benadryl at night if symptoms are worse then. Additionally, if symptoms do not improve, you may try Flonase nasal spray - use as directed. - Billing Disposition and Condition Condition: STABLE Disposition: Home
[2017-07-26 08:46] VITALS: BP 121/74
== END 2017-07-26 08:44 | disposition home or self-care (01) ==
LOC: ED 06:55
DX: J30.2 Other seasonal allergic rhinitis (principal); F17.210 Nicotine dependence, cigarettes, uncomplicated; Z88.0 Allergy status to penicillin
CPT/HCPCS: 87651; 99281

== ENCOUNTER 2018-01-22 09:37 | Emergency (ER) | payer BC ==
[2018-01-22] MEDS ORDERED: NS 0.9% 1000 ML* 1,000 ML IV ONE (09:57)
[2018-01-22] MEDS ORDERED: Ketorolac INJ* 30 MG/ML 1 ML VIAL IV ONE (09:57)
[2018-01-22 10:24] LABS: Urine Appearance Cloudy; Urine Blood Negative (Negative); Urine Color Yellow; Urine Ketones Negative (Negative); Urine Protein 1+(30 mg/dL) (Negative); Urine Red Blood Cell 1+(3-5/hpf) (Absent); Urine Specific Gravity 1.029 (1.010-1.030); Urine Urobilinogen Negative (Negative); Urine White Blood Cell Trace(0-5/hpf) (Absent)
--- NOTE | 2018-01-22 10:28 | ED ---
Abdominal Pain/Male - HPI Summary HPI Summary: A 32 y/o male presents to [facility] with a chief complaint of left sided abd pain since the morning of 01/22/18. He rates his pain as 6/10 and describes his pain as sharp. The patient claims that he also had a sore throat starting a couple days ago. He also c/o a dry cough. He has a Hx of kidney stones. He denies fevers, chills, difficulty swallowing, dysuria and hematuria. He states that he had surgery for his kidney stones. He admits to smoking occasionally, but denies drug or EtOH use. He denies any other Hx but states that he has a FHx of HTN. - History of Current Complaint Chief Complaint: EDFlankPain Stated Complaint: PAIN IN THROAT AND STOMACH Time Seen by Provider: 01/22/18 09:48 Hx Obtained From: Patient Onset/Duration: Sudden Onset, Lasting Hours, Still Present Timing: Constant Severity Initially: Moderate Severity Currently: Moderate Pain Intensity: 6 Pain Scale Used: 0-10 Numeric Location: Flank - left Radiates: No Character: Sharp Aggravating Factor(s): Nothing Alleviating Factor(s): Nothing - Allergies/Home Medications Allergies/Adverse Reactions: Allergies Allergy/AdvReac Type Severity Reaction Status Date / Time Penicillins Allergy Hives Verified 01/22/18 10:01 PMH/Surg Hx/FS Hx/Imm Hx Endocrine/Hematology History: Denies: Hx Diabetes Cardiovascular History: Denies: Hx Hypertension, Other Cardiovascular Problems/Disorders Respiratory History: Reports: Hx Seasonal Allergies - benadryl PRN Denies: Hx Asthma, Hx Pneumonia, Other Respiratory Problems/Disorders GI History: Denies: Hx Gastroesophageal Reflux Disease, Other GI Disorders History: Reports: Hx Kidney Stones - Left renal calculus, ESWL 03/11/17 Denies: Hx Kidney Infection, Other Problems/Disorders Musculoskeletal History: Reports: Other Musculoskeletal History - Occasional back pain. Sensory History: Reports: Hx Contacts or Glasses - Glasses Denies: Hx Hearing Aid Opthamlomology History: Reports: Hx Contacts or Glasses - Glasses Neurological History: Reports: Other Neuro Impairments/Disorders - Nerve damage right pinky and index finger from a laceration - Surgical History Surgery Procedure, Year, and Place: Lithotrypsy 02/2017 Hx Anesthesia Reactions: No Infectious Disease History: No Infectious Disease History: Denies: Traveled Outside the [place] in Last 30 Days - Family History Known Family History: Positive: Hypertension, Other - asthma Negative: Renal Disease - Social History Alcohol Use: None Hx Substance Use: Yes Substance Use Type: Reports: Marijuana Substance Use Comment - Amount & Last Used: Rarely Hx Tobacco Use: Yes Smoking Status (MU): Current Some Day Smoker Type: Cigarettes Amount Used/How Often: occasionally Have You Smoked in the Last Year: Yes Review of Systems Negative: Fever, Chills Positive: Abdominal Pain Negative: dysuria, hematuria All Other Systems Reviewed And Are Negative: Yes Physical Exam - Summary Physical Exam Summary: VITAL SIGNS: Reviewed. GENERAL: Patient is a well-developed and nourished male who is lying comfortable in the stretcher. Patient is not in any acute respiratory distress. HEAD AND FACE: Normocephalic and atraumatic. EYES: PERRLA, EOMI x 2, No injected conjunctiva. EARS: Hearing grossly intact. Ear canals and tympanic membranes are WNL. MOUTH: Oropharynx within normal limits. NECK: Pharyngeal erythema, Supple, trachea is midline, no adenopathy, no JVD. CHEST: Symmetric, no tenderness at palpation LUNGS: Clear to auscultation bilaterally. No wheezing or crackles. CVS: RRR, S1 and S2 present, no murmurs or gallops appreciated. ABDOMEN: Left CVA tednerness. No signs of distention. Positive bowel sounds. No rebound no guarding, and no masses palpated. No abdominal bruit or pulsations. EXTREMITIES: FROM in all major joints, no edema, no cyanosis or clubbing. NEURO: Alert and oriented x 3. No acute neurological deficits. Speech is normal. SKIN: Dry and warm Triage Information Reviewed: Yes Vital Signs On Initial Exam: Initial Vitals Temp Pulse Resp BP Pulse Ox 98.5 F 85 16 128/83 97 01/22/18 09:41 01/22/18 09:41 01/22/18 09:41 01/22/18 09:41 01/22/18 09:41 Vital Signs Reviewed: Yes Diagnostics - Vital Signs Vital Signs Temp Pulse Resp BP Pulse Ox 01/22/18 09:41 98.5 F 85 16 128/83 97 - Laboratory Result Diagrams: 01/22/18 10:13 01/22/18 10:13 Lab Statement: Any lab studies that have been ordered have been reviewed, and results considered in the medical decision making process. - CT abdomen/pelvis CT Interpretation Completed By: Radiologist Summary of CT Findings: NONOBSTRUCTING LEFT RENAL CALYCEAL STONES. ED physician has reviewed this imaging report. Abdominal Pain Fem Course/Dx - Course Assessment/Plan: A 32 y/o male presents to [facility] with a chief complaint of left sided abd pain since the morning of 01/22/18. He rates his pain as 6/10 and describes his pain as sharp. The patient claims that he also had a sore throat starting a couple days ago. He also c/o a dry cough. He has a Hx of kidney stones. He denies fevers, chills, difficulty swallowing, dysuria and hematuria. He states that he had surgery for his kidney stones. He admits to smoking occasionally, but denies drug or EtOH use. He denies any other Hx but states that he has a FHx of HTN. Blood work without any significant abnormality. Urinalysis with obtained and 1+ complaints leukocytes and 1+ rectal sounds. Rapid strep is negative. Abdomen and pelvic CT impression: Non-obstructive left renal calyceal stones. In the ED course the patient was given IV fluids and Toradol. At this point all his symptoms have resolved. Therefore, I believe that the patient has a viral pharyngitis and he does have any kidney stones. The patient doesnt have any dysuria, urinary frequency, he doesnt have any penile discharge therefore believe that the patient has a UTI. He was recommended to take ibuprofen for pain and follow up with the primary care physician. The patient understands and agrees. I discussed all the findings and test results with the patient. Patient was instructed to return to the emergency room immediately if any of the symptoms return or worsens. Plan of care was discussed with the patient and understands and agrees. All questions were answered at patient satisfaction. There were no further complaints or concerns. Lung exam before discharge: CTA B/L. Good air exchange. No wheezing or crackles heard. CVS: S1 and S2 present. No murmurs appreciated. Patient is alert and oriented x 3. Patient is hemodynamically stable. Patient will be discharged home with follow up PCP in the next 2-3 days - Diagnoses Provider Diagnoses: Viral pharyngitis, Left flank pain Discharge - Sign-Out/Discharge Documenting (check all that apply): Patient Departure - DC - Discharge Plan Condition: Stable Disposition: HOME Prescriptions: Ibuprofen TAB* [Motrin TAB* 600 MG] 600 mg PO Q8H PRN #20 tab PRN Reason: Pain Forms: *Work Release Referrals: [facility] [Outside] (3 days) Additional Instructions: Return to the ED for any worsening or new symptoms. - Billing Disposition and Condition Condition: STABLE Disposition: Home - Attestation Statements Document Initiated by Scribe: Yes Documenting Scribe: Shayne Donahue Provider For Whom Scribe is Documenting (Include Credential): Jasmeet Day MD Scribe Attestation: Shayne Mcdonald, scribed for Jasmeet Day MD on 01/23/18 at 1029. Scribe Documentation Reviewed: Yes Provider Attestation: The documentation as recorded by the Shayne reyna accurately reflects the service I personally performed and the decisions made by me, Jasmeet Day MD Status of Scribe Document: Viewed Attestations User Type: Provider with Scribe Provider Attestation: The documentation recorded by the maribell accurately reflects the service I personally performed and the decisions made by me.
[2018-01-22 10:33] LABS: ABS Basophils 0 10^3/ul (0-0.2); ABS Eosinophils 0.1 10^3/ul (0-0.6); ABS Lymphocytes 1.4 10^3/ul (1.0-4.8); ABS Monocytes 0.4 10^3/ul (0-0.8); ABS Neutrophils 2.1 10^3/ul (1.5-7.7); ABS Nucleated RBC 0 10^3/ul; Eosinophil % 1.7 %; Hematocrit 44 % (42-52); Hemoglobin 14.5 g/dl (14.0-18.0); Lymphocyte % 35.1 %; Mean Corpuscular HGB Conc 33 g/dl (31-36); Mean Corpuscular Hemoglobin 27 pg (27-31); Mean Corpuscular Volume 81 fL (80-94); Mean Platelet Volume 9.1 fL (7.4-10.4); Nucleated Red Blood Cells % 0.2; Platelet Count 159 10^3/ul (150-450); Red Blood Count 5.38 10^6/ul (4.00-5.40); Red Cell Distribution Width 14 % (10.5-15)
[2018-01-22 10:50] LABS: EGFR Non-African American 90.2 (>60)
[2018-01-22 10:52] VITALS: BP 112/83
== END 2018-01-22 10:58 | disposition home or self-care (01) ==
LOC: ED 09:37
DX: J02.8 Acute pharyngitis due to other specified organisms (principal); R10.32 Left lower quadrant pain; N20.0 Calculus of kidney; Z87.442 Personal history of urinary calculi; Z88.0 Allergy status to penicillin; Z72.0 Tobacco use
CPT/HCPCS: 36415; 74176; 80053; 81003; 81015; 83690; 85025; 86140; 87086; 87651; 96374; 99282; J1885

== ENCOUNTER 2018-03-13 12:32 | Emergency (ER) | payer BC ==
--- NOTE | 2018-03-13 13:07 | ED ---
Influenza-Like Illness - HPI Summary HPI Summary: A 32 y/o male presents to [facility] with a chief complaint of flu like symptoms since the morning of 03/13/18. The patient c/o body aches, cough with phlegm, fever and congestion. At triage he rated his pain as a 0/10 in severity and had a temperature of 101.8. He reports that he did not get the flu shot. He reports taking Mucinex and Dayquil [employer]. - History of Current Complaint Chief Complaint: EDFluSymptoms Time Seen by Provider: 03/13/18 12:57 Hx Obtained From: Patient Onset/Duration: Sudden Onset, Lasting Hours, Still Present Severity: Mild Associated Signs & Symptoms: Fever, Cough, Nasal Congestion - Allergy/Home Medications Allergies/Adverse Reactions: Allergies Allergy/AdvReac Type Severity Reaction Status Date / Time Penicillins Allergy Hives Verified 01/22/18 10:01 PMH/Surg Hx/FS Hx/Imm Hx Endocrine/Hematology History: Denies: Hx Diabetes Cardiovascular History: Denies: Hx Hypertension, Other Cardiovascular Problems/Disorders Respiratory History: Reports: Hx Seasonal Allergies - benadryl PRN Denies: Hx Asthma, Hx Pneumonia, Other Respiratory Problems/Disorders GI History: Denies: Hx Gastroesophageal Reflux Disease, Other GI Disorders History: Reports: Hx Kidney Stones - Left renal calculus, ESWL 03/11/17 Denies: Hx Kidney Infection, Other Problems/Disorders Musculoskeletal History: Reports: Other Musculoskeletal History - Occasional back pain. Sensory History: Reports: Hx Contacts or Glasses - Glasses Denies: Hx Hearing Aid Opthamlomology History: Reports: Hx Contacts or Glasses - Glasses Neurological History: Reports: Other Neuro Impairments/Disorders - Nerve damage right pinky and index finger from a laceration - Surgical History Surgery Procedure, Year, and Place: Lithotrypsy 02/2017 Hx Anesthesia Reactions: No Infectious Disease History: No Infectious Disease History: Denies: Traveled Outside the [place] in Last 30 Days - Family History Known Family History: Positive: Hypertension, Other - asthma Negative: Renal Disease - Social History Alcohol Use: None Hx Substance Use: Yes Substance Use Type: Reports: Marijuana Substance Use Comment - Amount & Last Used: Rarely Hx Tobacco Use: Yes Smoking Status (MU): Current Some Day Smoker Type: Cigarettes Amount Used/How Often: occasionally Have You Smoked in the Last Year: Yes Review of Systems Positive: Fever ENT: Other - posititve: nasal congestion Positive: Cough Positive: Other - positive: body aches All Other Systems Reviewed And Are Negative: Yes Physical Exam - Summary Physical Exam Summary: Appearance: The patient is well-nourished in no acute distress and in no acute pain. Skin: The skin is warm and dry and skin color reflects adequate perfusion. HEENT: The head is normocephalic and atraumatic. The pupils are equal and reactive. The conjunctivae are clear and without drainage. Nares are patent and without drainage. Mouth reveals moist mucous membranes and the throat is without erythema and exudate. The external ears are intact. The ear canals are patent and without drainage. The tympanic membranes are intact. Neck: The neck is supple with full range of motion and non-tender. There are no carotid bruits. There is no neck vein distension. Respiratory: Chest is non-tender. Lungs are clear to auscultation and breath sounds are symmetrical and equal. Cardiovascular: Heart is regular rate and rhythm. There is no murmur or rub auscultated. There is no peripheral edema and pulses are symmetrical and equal. Abdomen: The abdomen is soft and non-tender. There are normal bowel sounds heard in all four quadrants and there is no organomegaly palpated. Musculoskeletal: There is no back tenderness noted. Extremities are non-tender with full range of motion. There is good capillary refill. There is no peripheral edema or calf tenderness elicited. Neurological: Patient is alert and oriented to person, place and time. The patient has symmetrical motor strength in all four extremities. Cranial nerves are grossly intact. Deep tendon reflexes are symmetrical and equal in all four extremities. Psychiatric: The patient has an appropriate affect and does not exhibit any anxiety or depression. Triage Information Reviewed: Yes Vital Signs On Initial Exam: Initial Vitals Temp Pulse Resp BP Pulse Ox 101.8 F 101 20 147/92 98 03/13/18 12:43 03/13/18 12:43 03/13/18 12:43 03/13/18 12:43 03/13/18 12:43 Vital Signs Reviewed: Yes Diagnostics - Vital Signs Vital Signs Temp Pulse Resp BP Pulse Ox 03/13/18 12:43 101.8 F 101 20 147/92 98 - Laboratory Lab Statement: Any lab studies that have been ordered have been reviewed, and results considered in the medical decision making process. Re-Evaluation - Re-Evaluation First Eval Re-Evaluation Time: 14:17 Change: Improved Comment: Discussed lab results. Patient is ready for discharge. Flu Symptom Course/Dx - Course Course Of Treatment: Mr. Bauer presented with flulike symptoms of one day duration. He was nontoxic in appearance with stable vitals. His influenza A was positive and I will treat him with Tamiflu. - Diagnoses Provider Diagnoses: Influenza Discharge - Sign-Out/Discharge Documenting (check all that apply): Patient Departure - DC Patient Received Moderate/Deep Sedation with Procedure: No - Discharge Plan Condition: Stable Disposition: HOME Prescriptions: Oseltamivir CAP* [Tamiflu CAP*] 75 mg PO BID #10 cap Referrals: [facility] [place] [facility] [Outside] (2-3 days) Additional Instructions: Return to the ED if you experience any new or worsening symptoms. - Billing Disposition and Condition Condition: STABLE Disposition: Home - Attestation Statements Document Initiated by Scribe: Yes Documenting Scribe: Shayne Donahue Provider For Whom Annabel is Documenting (Include Credential): Jake Landry MD Scribe Attestation: Shayne Mcdonald, scribed for Jake Landry MD on 03/13/18 at 1655. Scribe Documentation Reviewed: Yes Provider Attestation: The documentation as recorded by the Shayne reyna accurately reflects the service I personally performed and the decisions made by me, Jake Landry MD Status of Scribe Document: Viewed
[2018-03-13 13:25] LABS: Influenza A Molecular POSITIVE (Negative)
[2018-03-13 14:22] VITALS: BP 118/61
== END 2018-03-13 14:21 | disposition home or self-care (01) ==
LOC: ED 12:32
DX: J10.1 Influenza due to other identified influenza virus with other respiratory manifestations (principal); Z88.0 Allergy status to penicillin; Z72.0 Tobacco use
CPT/HCPCS: 99282

== ENCOUNTER → 2018-03-22 19:41 | Emergency (ER) | payer BC ==
[~2018-03-22 19:41] MED LIST changes: -Buffered Lidocaine 0.9% SYRIN* 5 ML/SYR SYRINGE INTRADERM ONE; +Clindamycin CAP* 150 MG PO ONE; -Sodium Citrate/Citric Acid* 15 ML UDC PO ONE
--- NOTE | 2018-03-22 22:34 | ED ---
Throat Pain/Nasal Congestion - HPI Summary HPI Summary: 32 year old male presents with dental infection today. He states that he went to the dentist to get teethed cleaned couple days ago. He states that he woke up he noticed swelling on the left upper jaw. It has increased throughout day. no pain with eye movement. No swelling around his eyes. denies any chest pressures or shortness of breath. No sore throat. Does not have follow-up with dentist for another month. No fevers. He hasn't tried anything for his symptoms. - History of Current Complaint Chief Complaint: EDDentalPain Time Seen by Provider: 03/22/18 22:05 - Allergies/Home Medications Allergies/Adverse Reactions: Allergies Allergy/AdvReac Type Severity Reaction Status Date / Time Penicillins Allergy Hives Verified 03/22/18 19:54 PMH/Surg Hx/FS Hx/Imm Hx Endocrine/Hematology History: Denies: Hx Diabetes Cardiovascular History: Denies: Hx Hypertension, Other Cardiovascular Problems/Disorders Respiratory History: Reports: Hx Seasonal Allergies - benadryl PRN Denies: Hx Asthma, Hx Pneumonia, Other Respiratory Problems/Disorders GI History: Denies: Hx Gastroesophageal Reflux Disease, Other GI Disorders History: Reports: Hx Kidney Stones - Left renal calculus, ESWL 03/11/17 Denies: Hx Kidney Infection, Other Problems/Disorders Musculoskeletal History: Reports: Other Musculoskeletal History - Occasional back pain. Sensory History: Reports: Hx Contacts or Glasses - Glasses Denies: Hx Hearing Aid Opthamlomology History: Reports: Hx Contacts or Glasses - Glasses Neurological History: Reports: Other Neuro Impairments/Disorders - Nerve damage right pinky and index finger from a laceration - Surgical History Surgery Procedure, Year, and Place: Lithotrypsy 02/2017 Hx Anesthesia Reactions: No Infectious Disease History: No Infectious Disease History: Denies: Traveled Outside the [place] in Last 30 Days - Family History Known Family History: Positive: Hypertension, Other - asthma Negative: Renal Disease - Social History Alcohol Use: None Hx Substance Use: Yes Substance Use Type: Reports: Marijuana Substance Use Comment - Amount & Last Used: daily Hx Tobacco Use: Yes Smoking Status (MU): Never Smoked Tobacco Type: Cigarettes Amount Used/How Often: occasionally Have You Smoked in the Last Year: Yes Review of Systems Negative: Fever Positive: Dental Pain Negative: Chest Pain Negative: Shortness Of Breath All Other Systems Reviewed And Are Negative: Yes Physical Exam Triage Information Reviewed: Yes Vital Signs On Initial Exam: Initial Vitals Temp Pulse Resp BP Pulse Ox 99.5 F 98 16 137/104 97 03/22/18 19:51 03/22/18 19:51 03/22/18 19:51 03/22/18 19:51 03/22/18 19:51 Vital Signs Reviewed: Yes Appearance: Positive: Well-Appearing Skin: Positive: Warm, Dry Head/Face: Positive: Normal Head/Face Inspection Eyes: Positive: Normal, EOMI, OSWALDO, Conjunctiva Clear ENT: Positive: Normal ENT inspection, Pharynx normal, TMs normal Dental: Positive: Abscess @ - 12-13 above but no flutuance noted Respiratory/Lung Sounds: Positive: Clear to Auscultation, Breath Sounds Present Cardiovascular: Positive: Normal, RRR Abdomen Description: Positive: Nontender, Soft Bowel Sounds: Positive: Present Musculoskeletal: Positive: Normal Neurological: Positive: Normal Psychiatric: Positive: Normal Diagnostics - Vital Signs Vital Signs Temp Pulse Resp BP Pulse Ox 03/22/18 19:51 99.5 F 98 16 137/104 97 - Laboratory Lab Statement: Any lab studies that have been ordered have been reviewed, and results considered in the medical decision making process. EENT Course/Dx - Course Course Of Treatment: 32 year old male presents with dental infection today. He states that he went to the dentist to get teethed cleaned couple days ago. He states that he woke up he noticed swelling on the left upper jaw. It has increased throughout day. no pain with eye movement. No swelling around his eyes. denies any chest pressures or shortness of breath. No sore throat. Does not have follow-up with dentist for another month. No fevers. He hasn't tried anything for his symptoms. On exam has edema noted above to this 01-23. No fluctuance noted. Will place patient on [place]. Told to follow back up with dentist. Patient understands agrees plan. - Differential Diagnoses Differential Diagnoses: Dental Abscess, Dental Caries, Fractured Tooth - Diagnoses Provider Diagnoses: Dental infection Discharge - Sign-Out/Discharge Documenting (check all that apply): Patient Departure Patient Received Moderate/Deep Sedation with Procedure: No - Discharge Plan Condition: Good Disposition: HOME Prescriptions: Clindamycin Cap(NF) [Clindamycin Cap 300 mg Cap(NF)] 300 mg PO TID #20 cap Patient Education Materials: Dental Abscess (ED) Referrals: No Primary Care Phys,NOPCP [Primary Care Provider] - Additional Instructions: Take clindamycin three times a day for 7 days Take ibuprofen or tyenlol every 6 hours for pain as needed Avoid hard, crunchy food until seen by dentist Follow up with dentist Return to ED if develop fever, shortness of breath, pain with eye movement or swelling around eye - Billing Disposition and Condition Condition: GOOD Disposition: Home Images - Images Dental: 1 - infection
[2018-03-22 22:50] VITALS: BP 123/90
== END | disposition home or self-care (01) ==
LOC: ED 19:41
DX: K04.7 Periapical abscess without sinus (principal); K08.89 Other specified disorders of teeth and supporting structures
CPT/HCPCS: 99282; A9270-GY

== ENCOUNTER 2018-07-23 09:35 | Emergency (ER) | payer BC ==
[2018-07-23] MEDS ORDERED: Sucralfate TAB* 1 GM PO ONE (10:00)
[2018-07-23] MEDS ORDERED: Ondansetron ODT TAB* 4 MG PO ONE (10:00)
[2018-07-23] MEDS ORDERED: Famotidine TAB* 20 MG PO ONE (10:00)
--- NOTE | 2018-07-23 10:11 | ED ---
Abdominal Pain/Male - HPI Summary HPI Summary: Pt is 32 y/o male with hx of kidney stones requiring lithotripsy in 2018 with left abdominal and flank pain x 3 days. States he had nausea and vomiting x 2 days, resolved today. Denies dysuria, hematuria, difficulty urinating, back pain , fevers, diarrhea. States he also developed a productive cough with yellow/ green sputum 2 days ago. States his current sx are not similar to previous kidney stones. Denies current nausea and declines medications for pain at this time. - History of Current Complaint Chief Complaint: EDAbdPain Stated Complaint: NOT FEELING WELL PER PT Time Seen by Provider: 07/23/18 09:57 Hx Obtained From: Patient Onset/Duration: Lasting Days Timing: Constant Severity Initially: Mild Severity Currently: Mild Pain Intensity: 3 Pain Scale Used: 0-10 Numeric Location: Discrete At: LUQ, Discrete At: LLQ, Flank - Left Radiates: No Character: Sharp Aggravating Factor(s): Nothing Alleviating Factor(s): Nothing Associated Signs And Symptoms: Positive: Cough, Nausea, Vomiting. Negative: Fever, Chest Pain, Back Pain, Blood in Stool, Urinary Symptoms, Diarrhea - Allergies/Home Medications Allergies/Adverse Reactions: Allergies Allergy/AdvReac Type Severity Reaction Status Date / Time Penicillins Allergy Hives Verified 07/23/18 10:02 PMH/Surg Hx/FS Hx/Imm Hx Previously Healthy: Yes Endocrine/Hematology History: Denies: Hx Diabetes Cardiovascular History: Denies: Hx Hypertension, Other Cardiovascular Problems/Disorders Respiratory History: Reports: Hx Seasonal Allergies - benadryl PRN Denies: Hx Asthma, Hx Pneumonia, Other Respiratory Problems/Disorders GI History: Denies: Hx Gastroesophageal Reflux Disease, Other GI Disorders History: Reports: Hx Kidney Stones - Left renal calculus, ESWL 03/11/17 Denies: Hx Kidney Infection, Other Problems/Disorders Musculoskeletal History: Reports: Other Musculoskeletal History - Occasional back pain. Sensory History: Reports: Hx Contacts or Glasses - Glasses Denies: Hx Hearing Aid Opthamlomology History: Reports: Hx Contacts or Glasses - Glasses Neurological History: Reports: Other Neuro Impairments/Disorders - Nerve damage right pinky and index finger from a laceration - Surgical History Surgical History: Yes Surgery Procedure, Year, and Place: Lithotrypsy 02/2017 Hx Anesthesia Reactions: No Infectious Disease History: No Infectious Disease History: Denies: Traveled Outside the [place] in Last 30 Days - Family History Known Family History: Positive: Hypertension, Other - asthma Negative: Renal Disease - Social History Alcohol Use: None Hx Substance Use: Yes Substance Use Type: Reports: Marijuana Substance Use Comment - Amount & Last Used: daily Hx Tobacco Use: Yes Smoking Status (MU): Never Smoked Tobacco Type: Cigarettes Amount Used/How Often: occasionally Have You Smoked in the Last Year: Yes Review of Systems Negative: Fever, Chills Negative: Chest Pain Positive: Cough Positive: Abdominal Pain, Vomiting, Nausea. Negative: Diarrhea Positive: flank pain - left. Negative: dysuria, hematuria, pain Negative: Headache All Other Systems Reviewed And Are Negative: Yes Physical Exam Triage Information Reviewed: Yes Vital Signs On Initial Exam: Initial Vitals Temp Pulse Resp BP Pulse Ox 99.0 F 87 16 123/84 99 07/23/18 09:54 07/23/18 09:54 07/23/18 09:54 07/23/18 09:54 07/23/18 09:54 Vital Signs Reviewed: Yes Appearance: Positive: Well-Appearing, No Pain Distress Skin: Positive: Warm, Skin Color Reflects Adequate Perfusion, Dry Head/Face: Positive: Normal Head/Face Inspection Eyes: Positive: Normal, Conjunctiva Clear ENT: Positive: Normal ENT inspection Neck: Positive: Supple, Nontender Respiratory/Lung Sounds: Positive: Clear to Auscultation, Breath Sounds Present. Negative: Rales, Rhonchi, Wheezes Cardiovascular: Positive: RRR. Negative: Murmur, Rub Abdomen Description: Positive: Soft. Negative: Nontender - Tenderness to LUQ and LLQ., CVA Tenderness (R), CVA Tenderness (L), Distended Bowel Sounds: Positive: Present Musculoskeletal: Positive: Normal, Strength/ROM Intact Neurological: Positive: Normal, Sensory/Motor Intact, Alert, Oriented to Person Place, Time Psychiatric: Positive: Normal Diagnostics - Vital Signs Vital Signs Temp Pulse Resp BP Pulse Ox 07/23/18 09:54 99.0 F 87 16 123/84 99 - Laboratory Lab Results: Laboratory Results - last 24 hr 07/23/18 10:30 Urine Color Yellow Urine Appearance Cloudy Urine pH 5.0 Ur Specific Elizabeth 1.030 Urine Protein Negative Urine Ketones 1+ A Urine Blood 1+ A Urine Nitrate Negative Urine Bilirubin Negative Urine Urobilinogen Negative Ur Leukocyte Esterase Negative Urine WBC (Auto) Trace(0-5/hpf) Urine RBC (Auto) 1+(3-5/hpf) A Urine Bacteria Absent Urine Glucose Negative Lab Statement: Any lab studies that have been ordered have been reviewed, and results considered in the medical decision making process. - Radiology CXR Radiology Interpretation Completed By: Radiologist Summary of Radiographic Findings: No active cardiopulmonary disease - CT CT abd/pelvis CT Interpretation Completed By: Radiologist Summary of CT Findings: Nonobstructing left renal calyceal stone. Fatty infiltration of liver. Abdominal Pain Male Course/Dx - Course Course Of Treatment: 32 y/o male with hx of ureteral stones with left upper and lower quadrant pain, nausea, vomiting. He states yesterday he experienced kidney stone-like pain. CT shows nonobstructing renal stone and significant amount of stool in the colon. U/A positive for blood and RBCs. Patient likely passed a stone yesterday. He is now comfortable (not requiring any medication) and ready to be discharged home. - Diagnoses Differential Diagnosis/HQI/PQRI: Constipation, Diverticulitis, Renal Colic, Ureteral Stone, Urinary Tract Infection Provider Diagnoses: Renal colic on left side Discharge - Sign-Out/Discharge Documenting (check all that apply): Patient Departure Patient Received Moderate/Deep Sedation with Procedure: No - Discharge Plan Condition: Improved Disposition: HOME Prescriptions: Naproxen [Naproxen 500 mg tab] 500 mg PO BID PRN #14 tablet PRN Reason: Pain Patient Education Materials: Renal Colic (ED) Referrals: [facility] [Outside] [facility] [place] [facility] [Outside] Additional Instructions: Drink plenty of fluids. Follow-up with a [facility] clinic. Primary care referral has been given to you. Return with fever, blood in the urine, worse, new symptoms or other concerns. - Billing Disposition and Condition Condition: IMPROVED Disposition: Home - Attestation Statements Document Initiated by Scribe: Yes Documenting Scribe: JAMES Fontana Provider For Whom Scribe is Documenting (Include Credential): Dr. Daigle Scribe Attestation: John Mcdonald PA-S, scribed for Dr. Daigle on 07/23/18 at 1151. Scribe Documentation Reviewed: Yes Provider Attestation: The documentation as recorded by the dhavalibjoana, JAMES Fontana accurately reflects the service I personally performed and the decisions made by me, Dr. Daigle Status of Annabel Document: Viewed
[2018-07-23 10:48] LABS: Urine Appearance Cloudy; Urine Bacteria Absent (Absent); Urine Bilirubin Negative (Negative); Urine Blood 1+ (Negative); Urine Color Yellow; Urine Glucose Negative (Negative); Urine Ketones 1+ (Negative); Urine Nitrite Negative (Negative); Urine Protein Negative (Negative); Urine Red Blood Cell 1+(3-5/hpf) (Absent); Urine Urobilinogen Negative (Negative); Urine White Blood Cell Trace(0-5/hpf) (Absent)
[2018-07-23 11:15] VITALS: BP 0/0
== END 2018-07-23 11:14 | disposition home or self-care (01) ==
LOC: ED 09:35
DX: N20.0 Calculus of kidney (principal); Z87.442 Personal history of urinary calculi; K76.0 Fatty (change of) liver, not elsewhere classified; R05 Cough; R11.2 Nausea with vomiting, unspecified; Z88.0 Allergy status to penicillin
CPT/HCPCS: 71046; 74176; 81003; 81015; 87086; 99283; A9270-GY

== ENCOUNTER 2024-02-07 19:52 | Inpatient (IN) ==
[2024-02-07 20:41] LABS: Hematocrit 38.5 % (38-53); Hemoglobin 13.2 g/dL (13.2-16.3); Mean Corpuscular Hemoglobin 27.5 pg (27-33); Mean Corpuscular Hgb Conc 34.3 g/dL (31-36); Mean Corpuscular Volume 80.1 fL (80-97); Mean Platelet Volume 8.8 fL (7.5-11.2); Platelet Count 199 10^3/uL (150-450); Red Cell Distribution Width 13.7 % (12-17); White Blood Count 6.3 10^3/uL (3.6-10.2)
[2024-02-07 20:56] LABS: Urine Benzodiazepine Screen None Detected (None Detect); Urine Cannabinoids Screen Presumptive Positive (None Detect); Urine Opiates Screen None Detected (None Detect)
[2024-02-07 21:15] LABS: ALT 41 U/L (7-52); AST 26 U/L (13-39); Acetaminophen < 15 mcg/mL; Albumin 4.5 g/dL (3.5-5.7); Albumin/Globulin Ratio 1.7 (1-3); Alcohol, S < 13 mg/dL (<13); Alkaline Phosphatase 47 U/L (35-149); Anion Gap 8 mmol/L (2-16); Blood Urea Nitrogen 16 mg/dL (6-24); CO2 Carbon Dioxide 26 mmol/L (22-32); Calcium 9.2 mg/dL (8.6-10.3); Chloride 103 mmol/L (101-111); Creatinine, Serum 1.03 mg/dL (0.67-1.17); Globulin 2.7 g/dL (2-4); Glucose 98 mg/dL (70-100); Potassium 3.9 mmol/L (3.5-5.0); Salicylate < 2.50 mg/dL (<30); Sodium 137 mmol/L (135-145); Total Bilirubin 0.9 mg/dL (0.2-1.0); Total Protein 7.2 g/dL (6.4-8.9); eGFR CKD-EPI 94.8 (>60)
[2024-02-07 21:29] LABS: TSH Ultra Thyroid Stim Horm 2.44 mcIU/mL (0.34-5.60)
[2024-02-07 21:34] LABS: ABS Basophils 0.1 10^3/uL (0.0-0.1); ABS Lymphocytes 2.7 10^3/uL (1.0-4.8); ABS Monocytes 0.5 10^3/uL (0.0-1.1); ABS Nucleated RBC 0.01 10^3/ul; Eosinophil % 0.5 %; Lymphocyte % 43.3 %; Nucleated Red Blood Cells % 0.1 %/100WBC (0.0-0.8)
[2024-02-08] MEDS ORDERED: Al Hydrox/Mg Hydrox/Simet LIQ 30 ML UDC PO PRN (01:17)
[2024-02-08] MEDS: Vitamin THERAPEUTIC TAB PO SCH (10:23)
[2024-02-10 09:20] LABS: HDL Cholesterol 37.3 mg/dL
[2024-02-10 09:34] VITALS: BP 139/82
== END 2024-02-10 15:32 | disposition home or self-care (01) | DRG 914 ==
LOC: ED 19:52 → EDHOLD 02-08 01:00 → BSU 02-08 01:25
PROVIDERS: ADMIT Psychiatry & Neurology Psychiatry; ATTEND Student in an Organized Health Care Education/Training Program